=== PATIENT | female | born 1995 | race Caucasian/White ===

== ENCOUNTER 2023-07-30 15:29 | Emergency (ER) | payer OTHER, SELFPAY ==
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
[2023-07-30 15:31] VITALS: BP 128/68; PULSE 72; RESP 16; TEMP 36.9; O2SAT 100
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
== END 2023-07-30 16:55 | disposition home or self-care (01) ==
PROVIDERS: Emergency Provider Family Medicine; PCP Internal Medicine
DX: S16.1XXA Strain of muscle, fascia and tendon at neck level, initial encounter (principal); M41.9 Scoliosis, unspecified; M47.813 Spondylosis without myelopathy or radiculopathy, cervicothoracic region; V49.40XA Driver injured in collision with unspecified motor vehicles in traffic accident, initial encounter
CPT/HCPCS: 72050; 99283